=== PATIENT | male | born 1995 | race Two or more races ===

== ENCOUNTER 2021-06-21 23:57 | Emergency (ER) | payer BC, MEDICAID ==
[~2021-06-21] VITALS: Ht 177.8 cm; Wt 93.0 kg
[2021-06-22] MEDS ORDERED: CLOT15CR27 TP (01:27)
[2021-06-22 01:35] VITALS: BP 126/89
== END 2021-06-22 01:50 | disposition home or self-care (01) ==
LOC: ER 23:57
DX: B35.6 Tinea cruris (principal); U07.1 COVID-19
CPT/HCPCS: 99283

== ENCOUNTER 2021-06-22 19:21 | Emergency (ER) | payer BC, MEDICAID ==
[~2021-06-22] VITALS: Ht 180.3 cm; Wt 91.0 kg
[~2021-06-22 19:21] MED LIST: CLOT15CR27 TP
[2021-06-22] MEDS ORDERED: ACETAMINOPHEN 325MG TABLET PO ONE (20:00)
[2021-06-22 20:04] VITALS: BP 148/72
== END 2021-06-22 20:16 | disposition home or self-care (01) ==
LOC: ER 19:21
DX: M25.512 Pain in left shoulder (principal); M79.602 Pain in left arm; M25.522 Pain in left elbow
CPT/HCPCS: 99283